=== PATIENT | female | born 1965 | race Caucasian/White ===

== ENCOUNTER 2018-05-28 19:34 | Inpatient (IN) | payer OTHER ==
[2018-05-28 19:43] VITALS: BMI 31.8
[2018-05-28] MEDS ORDERED: NITROGLYCERIN SUBLINGUAL 1/150 0.4 MG TAB SL ONE ×2 (19:51→21:07)
[2018-05-28] MEDS ORDERED: FUROSEMIDE 40 MG/4 ML INJECTABLE VIAL IVPUSH ONE (19:53)
[2018-05-28 19:58] LABS: BASO % 0.7 % (0-2.0); EOS % 1.5 % (0-4.5); HEMATOCRIT 40.5 % (32.4-45.2); HEMOGLOBIN 13.1 GM/dL (10.7-15.3); LYMPH % 12.1 % (8-40); MCH 29.4 pg (25.7-33.7); MCHC 32.3 g/dl (32.0-36.0); MEAN PLT VOLUME 8.7 fl (7.5-11.1); MONO % 7.4 % (3.8-10.2); NEUT % 78.3 % (42.8-82.8); PLATELET COUNT 358 K/MM3 (134-434); RBC 4.45 M/mm3 (3.60-5.2); RDW 14.8 % (11.6-15.6); WHITE BLOOD COUNT 15.2 K/mm3 (4.0-10.0)
[2018-05-28] MEDS ORDERED: NITROPRUSSIDE SODIUM 50,000 MCG in SODIUM CHLORIDE 248 ML IVPB SCH (20:00)
--- NOTE | 2018-05-28 20:04 | PDOC ---
Attending Attestation - Resident Resident Name: Floyd Billydayron - ED Attending Attestation I have performed the following: I have examined & evaluated the patient, The case was reviewed & discussed with the resident, I agree w/resident's findings & plan, Exceptions are as noted - HPI HPI: 05/28/18 20:05 The patient is a 52 year old female, with a significant past medical history of HTN and DM, who presents to the emergency department with, shortness of breath. As per patient, she has been sick and experiencing shortness of breath for the "past few days." Today she notes, experiencing worsening dyspnea upon exertion, orthopnea, and chest tightness without pain. Her symptoms worsened 30 minutes prior to her arrival prompting her to call EMS. She denies recent fevers, chills, headache or dizziness. She denies recent nausea, vomit, diarrhea or constipation. She denies recent dysuria, frequency, urgency or hematuria. Allergies: Penicillins. Past surgical history: None reported. Social history: Smoker. - Medical Decision Making 05/28/18 20:[address] Lokesh Pacheco, medical doctor tongue stitcher, case was discussed. 10:52pm Call placed to Dr. Pacheco, resident Dr. Buffy Billy discussed case with Dr. Pacheco. <Sugey Haque - Last Filed: 05/28/18 22:53> - ED Attending Attestation I have performed the following: I have examined & evaluated the patient, The case was reviewed & discussed with the resident, I agree w/resident's findings & plan, Exceptions are as noted - Physicial Exam PE: 05/29/18 07:42 On initial encounter patient was in obvious distress, tachypneic. Exam was significant for diffuse wheezing, poor air entry, increased wob breathing +edema bilateral LE - Critical Care Time Total Critical Care Time: 20 - Medical Decision Making 05/29/18 07:44 Pt presented, hypertense, tachycardic, tachypneic with sob and LE edema, was initially treated for presumed APE, consider acs, pe, pna labs significant for positive troponin txed as nstemi, admit to tele <Vito Ashley - Last Filed: 05/29/18 07:46> Attestations - Attestations 05/28/18 20:05 Documentation prepared by Sugey Haque, acting as medical transcriber for Vito Ashley MD. <Sugey Haque - Last Filed: 05/28/18 22:53>
[2018-05-28] MEDS ORDERED: FUROSEMIDE 40 MG/4 ML INJECTABLE VIAL ONE (20:11)
[2018-05-28 20:33] LABS: ALBUMIN 3.8 g/dl (3.4-5.0); ALK PHOS 116 U/L (45-117); ANION GAP 8 MMOL/L (8-16); BILIRUBIN,TOTAL 0.3 mg/dL (0.2-1); BLOOD UREA NITROGEN 12 mg/dL (7-18); CHLORIDE 104 mmol/L (98-107); CO2 25 mmol/L (21-32); CREATININE 0.8 mg/dL (0.55-1.3); MAGNESIUM 2.1 mg/dL (1.8-2.4); N-TERMINAL BNP 1526.5 pg/ml (5-125); PHOSPHOROUS 3.2 mg/dL (2.5-4.9); POTASSIUM 4.8 mmol/L (3.5-5.1); SGOT/AST 21 U/L (15-37); SGPT/ALT 43 U/L (13-61); SODIUM 137 mmol/L (136-145); TOT PROT 7.3 g/dl (6.4-8.2)
[2018-05-28 20:42] LABS: GLUCOSE,RANDOM 470 mg/dL (74-106)
[2018-05-28] MEDS ORDERED: ASPIRIN 81 MG CHEWABLE TABLETS PO ONE ×2 (21:07)
[2018-05-28 21:09] LABS: INR 0.88 (0.83-1.09); PROTHROMBIN TIME (PATIENT) 10.4 SEC (9.7-13.0)
[2018-05-28] MEDS ORDERED: ASPIRIN COATED 81 MG TABLET.EC ONE (21:13)
[2018-05-28] MEDS ORDERED: ASPIRIN 81 MG CHEWABLE TABLETS ONE (21:14)
[2018-05-28] MEDS ORDERED: NITROGLYCERIN 25MG/D5W 250ML 25 MG/250 ML ML IVPB SCH (21:15)
[2018-05-28] MEDS ORDERED: HEPARIN NA (PORCINE) 5,000 UNITS/ML 1ML VIAL IVPUSH ONE ×2 (21:15→21:46)
--- NOTE | 2018-05-28 21:40 | PDOC ---
History of Present Illness - General Chief Complaint: Shortness of Breath Stated Complaint: SOB Time Seen by Provider: 05/28/18 19:39 - History of Present Illness Initial Comments: 52 year old female with PMH of HTN, HLD, and IDDM presenting with chest pressure and shortness of breath for the past 30 minutes. Patient states that she has never experienced this before. Denies any prodromal symptoms. She was walking in for chest tightness then suddenly had this shortness of breath. Describes the chest pressure as central and non-radiating preventing her from fully inspiring. Also states that she has experienced slightly worse leg swelling over the last few weeks. 05/28/18 21:36 Past History - Past Medical History Allergies/Adverse Reactions: Allergies Allergy/AdvReac Type Severity Reaction Status Date / Time Penicillins Allergy Hives Verified 05/28/18 20:32 Home Medications: Ambulatory Orders Gabapentin 800 mg PO BID 05/28/18 Glipizide 5 mg PO BID 05/28/18 Insulin Glargine,Hum.rec.anlog [Lantus] 20 unit SQ HS 05/28/18 Insulin Lispro [Humalog] 100 unit SQ ASDIR PRN 05/28/18 Omeprazole 40 mg PO DAILY 05/28/18 Ropinirole HCl [Requip] 1 mg PO BID 05/28/18 Rosuvastatin Calcium [Crestor] 20 mg PO DAILY 05/28/18 Saxagliptin HCl/Metformin HCl [Kombiglyze Xr 2.5-1,000 mg Tab] 1 tab PO BID COPD: No CHF: No DVT: No Diabetes: Yes HTN: Yes - Immunization History Immunization Up to Date: No - Suicide/Smoking/Psychosocial Hx Smoking History: Former smoker Have you smoked in the past 12 months: No Information on smoking cessation initiated: No Hx Alcohol Use: No Drug/Substance Use Hx: No Substance Use Type: None Review of Systems - Review of Systems Constitutional: No: Chills, Diaphoresis, Fever HEENTM: No: Eye Pain, Blurred Vision, Tearing Respiratory: No: Cough, Orthopnea, Shortness of Breath Cardiac (ROS): Yes: Chest Pain, Palpitations. No: Edema ABD/GI: No: Diarrhea, Nausea, Poor Appetite, Vomiting : No: Dysuria, Discharge Musculoskeletal: No: Muscle Pain, Muscle Weakness Integumentary: Yes: Sweating, Other. No: Bruising, Erythema, Flushing, Lesions , Lumps Neurological: No: Numbness, Paresthesia, Tremors Psychiatric: No: Anxiety, Depression Hematologic/Lymphatic: No: Anemia, Blood Clots, Easy Bleeding *Physical Exam - Vital Signs Last Vital Signs Temp Pulse Resp BP Pulse Ox 96.6 F L 132 H 35 H 120/57 L 93 L 05/28/18 19:35 05/28/18 20:25 05/28/18 20:25 05/28/18 20:25 05/28/18 20:40 - Physical Exam General Appearance: Yes: Nourished, Appropriately Dressed, Apparent Distress, Moderate Distress HEENT: positive: EOMI, KRISTY, Normal ENT Inspection, Normal Voice Neck: positive: Trachea midline, Normal Thyroid, Supple. negative: Tender, Rigid Respiratory/Chest: positive: Respiratory Distress, Accessory Muscle Use, Labored Respiration, Rapid RR. negative: Chest Tender, Lungs Clear, Normal Breath Sounds (coarse bilateral breath soundes) Cardiovascular: positive: Regular Rhythm, Tachycardia. negative: Regular Rate Gastrointestinal/Abdominal: positive: Normal Bowel Sounds, Flat, Soft. negative : Tender Lymphatic: negative: Adenopathy, Tenderness Musculoskeletal: positive: Normal Inspection. negative: Decreased Range of Motion Extremity: positive: Normal Capillary Refill, Normal Inspection, Normal Range of Motion. negative: Tender, Pedal Edema Integumentary: positive: Normal Color, Dry, Warm Neurologic: positive: Fully Oriented, Alert, Normal Mood/Affect, Normal Response , Motor Strength 5/5 ED Treatment Course - LABORATORY CBC & Chemistry Diagram: 05/28/18 19:38 05/28/18 19:38 - ADDITIONAL ORDERS Additional order review: Laboratory Results 05/28/18 05/28/18 19:38 19:38 PT with INR 10.40 INR 0.88 Sodium 137 Potassium 4.8 Chloride 104 Carbon Dioxide 25 Anion Gap 8 BUN 12 Creatinine 0.8 Creat Clearance w eGFR > 60 Random Glucose 470 H* Calcium 9.0 Phosphorus 3.2 Magnesium 2.1 Total Bilirubin 0.3 AST 21 ALT 43 Alkaline Phosphatase 116 Creatine Kinase 252 H Creatine Kinase Index 0.9 CK-MB (CK-2) 2.5 Troponin I 0.33 H B-Natriuretic Peptide 1526.5 H Total Protein 7.3 Albumin 3.8 05/28/18 19:38 RBC 4.45 MCV 91.0 MCHC 32.3 RDW 14.8 MPV 8.7 Neutrophils % 78.3 Lymphocytes % 12.1 Monocytes % 7.4 Eosinophils % 1.5 Basophils % 0.7 - Medications Given in the ED: ED Medications Discontinued Medications Generic Name Dose Route Start Last Admin Trade Name Maggie PRN Reason Stop Dose Admin Furosemide 40 mg 05/28/18 19:53 05/28/18 20:20 Lasix Injection - IVPUSH 05/28/18 19:54 40 mg ONCE ONE Administration Nitroglycerin 0.4 mg 05/28/18 19:51 05/28/18 20:09 Nitrostat - SL 05/28/18 19:52 Not Given ONCE ONE Medical Decision Making - Medical Decision Making 52 year old presenting in extreme respiratory distress with chest pressure. Given duonebs with good relief of some symptoms. CXR showing bilateral hilar congestion and pleural effusions concerning for new CHF. Troponin elevated to 0.33 with EKG demonstrating rate 135, CA 124, QRS 104, QTc 471, and normal axis , with LaFB. Repeat EKG showing improved rate 121 without any other changes. Patient was given duonebs x 3, and Lasix 40 IV. Nitroglycerin was considered but held because of pressures resolving on their own. Patient was started on heparin drip and Dr. Jack was kind enough to accept our consult. He recommended that we treat this as a new CHF and give beta blockers to decrease heart rate to decrease myocardial oxygen demand. We were originally concerned that her respiratory symptoms could be attributed to COPD exacerbation type picture because of her smoking history but her CXr and overall clinical picture provides CHF as a more unifying diagnosing. Signed out patient to resident Hdz to hospitalist service in stable condition pending 50 metop tartrate administration. 05/28/18 23:18 *DC/Admit/Observation/Transfer Diagnosis at time of Disposition: NSTEMI (non-ST elevated myocardial infarction), Chest pressure - Discharge Dispostion Condition at time of disposition: Guarded Decision to Admit order: Yes - Referrals Referrals: Kerri Franco [Primary Care Provider] - - Patient Instructions - Post Discharge Activity
[2018-05-28] MEDS ORDERED: HEPARIN NA (PORCINE) 5,000 UNITS/ML 1ML VIAL IVPUSH PRN ×2 (21:46)
[2018-05-28 21:56] LABS: ACETONE SERUM POSITIVE SMALL 1+ (NEGATIVE)
[2018-05-28] MEDS ORDERED: HEPARIN INFUSION - 25,000 UNITS/500 ML INFUS.BAG IVPB ONE (22:35)
[2018-05-28] MEDS ORDERED: HEPARIN NA (PORCINE) 5,000 UNITS/ML 1ML VIAL ONE (22:35)
[2018-05-28] MEDS: HEPARIN INFUSION - 25,000 UNITS/500 ML INFUS.BAG IVPB SCH (22:36)
--- NOTE | 2018-05-28 22:44 | PN ---
Teaching Attending Note Name of Resident: Negrita Hamm ATTENDING PHYSICIAN STATEMENT I saw and evaluated the patient. I reviewed the resident's note and discussed the case with the resident. I agree with the resident's findings and plan as documented. SUBJECTIVE: Patient is a 52 year old woman with a PMH of HLD, penicillin allergy, diabetic retinopathy with prior laser therapy, HTN and NIDDM, who presents to the ER with , shortness of breath. As per patient, she has been sick and experiencing shortness of breath for the "past few days." Today she notes, experiencing worsening dyspnea upon exertion, orthopnea, and chest tightness without pain. Her symptoms worsened 30 minutes prior to her arrival prompting her to call EMS. She denies recent fevers, chills, headache or dizziness. She denies recent nausea, vomit, diarrhea or constipation. She denies recent dysuria, frequency, urgency or hematuria. OBJECTIVE: Alert Vital Signs Period Temp Pulse Resp BP Sys/Corona Pulse Ox Last 24 Hr 96.6 F 130-154 16-38 120-155/52-114 84-100 HEENT: No Jaundice, eye redness or discharge, PERRLA, EOMI. Normocephalic, atraumatic. External ears are normal and hearing is grossly intact. No nasal discharge. Neck: Supple, nontender. No palpable adenopathy or thyromegaly. No JVD Chest: Good effort. Diminished breath sounds in right base and wheezing in left base with prolonged expiration. Heart: Regular. No S3, rub or murmur Abdomen: Not distended, soft, nontender and no HSM. No rebound or guarding. Normoactive bowel sounds. Ext: Peripheral pulses intact. No leg edema. Skin: Warm and dry. No petechiae, rash or ecchymosis. Neuro: Alert. Oriented x3. CN 2-12 grossly intact. Sensation grossly intact in all four extremities and DTR are symmetric. Current Medications Generic Name Dose Route Start Last Admin Trade Name Freq PRN Reason Stop Dose Admin Heparin Sodium (Porcine) 5,000 unit 05/28/18 21:46 Heparin - IVPUSH PRN PRN Heparin Sodium (Porcine) 1,000 unit 05/28/18 21:46 Heparin - IVPUSH PRN PRN Heparin Heparin Sodium/Dextrose 25,000 units in 500 mls @ 20 mls/hr 05/28/18 21:15 Heparin Infusion - IVPB TITR ELOY Protocol 1,000 UNITS/HR Nitroglycerin/Dextrose 25 mg in 250 mls @ 24 mls/hr 05/28/18 21:15 05/28/18 22:12 Nitroglycerin 25mg/D5w 250ml IVPB Not Given TITR ELOY Protocol 40 MCG/MIN Home Medications Medication Instructions Recorded Gabapentin 800 mg PO BID 05/28/18 Glipizide 5 mg PO BID 05/28/18 Insulin Glargine,Hum.rec.anlog 20 unit SQ HS 05/28/18 [Lantus] Insulin Lispro [Humalog] 100 unit SQ ASDIR PRN 05/28/18 Omeprazole 40 mg PO DAILY 05/28/18 Ropinirole HCl [Requip] 1 mg PO BID 05/28/18 Rosuvastatin Calcium [Crestor] 20 mg PO DAILY 05/28/18 Saxagliptin HCl/Metformin HCl 1 tab PO BID 05/28/18 [Kombiglyze Xr 2.5-1,000 mg Tab] Abnormal Lab Results 05/28/18 05/28/18 19:38 19:38 WBC 15.2 H Absolute Neuts (auto) 11.9 H Random Glucose 470 H* Creatine Kinase 252 H Troponin I 0.33 H B-Natriuretic Peptide 1526.5 H Acetone, Qual Positive small 1+ H ASSESSMENT AND PLAN: 1. NSTEMI - Patient being treated with IV heparin drip, statin, metoprolol, plavix and aspirin. Admit to telemetry, get ECHO and consult cardiology. CXR show congestion, possible RLL infiltrate, cardiomegaly, and blunted left CP angle. In view of tachycardia, tachypnea, leukocytosis and CXR findings, will get CTPA to rule out PE and/or pneumonia. Get UA and urine legionella antigen. Got 40 mg of lasix and made about 100 ml of urine. Treat with Duoneb PRN. 2. DM - For now, we will hold the home diabetes drugs and implement sliding scale insulin regimen. Provide comprehensive diabetes care with patient teaching and counseling about the importance of euglycemia, eye care and foot care. 3. Obesity - Will provide patient all the necessary assistance, counseling and positive reinforcement to facilitate weight loss. Consult financial aid advisor. 4. DVT prophylaxis - On IV Heparin drip 5. Advance directives - Full code
[2018-05-28] MEDS ORDERED: METOPROLOL TARTRATE 50 MG TABLET (FP) PO ONE (23:03)
[2018-05-28] MEDS ORDERED: METOPROLOL TARTRATE 50 MG TABLET (FP) ONE (23:35)
[2018-05-29] MEDS ORDERED: INSULIN (LEVEMIR) 100 UNITS/ML UNITS SQ ONE (03:05)
[2018-05-29] MEDS: INSULIN (LEVEMIR) 100 UNITS/ML UNITS SQ SCH ×2 (03:17→21:14)
[2018-05-29] MEDS: GABAPENTIN 400 MG CAPSULE (FP) PO SCH ×3 (03:18→21:16)
[2018-05-29] MEDS: rOPINIRole HCL 1 MG TABLET (FP) PO SCH ×3 (03:18→21:45)
[2018-05-29] MEDS ORDERED: CEFTRIAXONE 1,000 MG in DEXTROSE 5%-WATER - 50 ML IVPB ONE (03:19)
--- NOTE | 2018-05-29 03:32 | HP ---
CHIEF COMPLAINT: shortness of breath and chest pressure PCP: Dr. Franco ([facility]) HISTORY OF PRESENT ILLNESS: 52F w/ pmhx of HLD, DM, GERD, restless leg syndrome presented to the ED with complaints of shortness of breath and chest pressure. She states her original symptom was a cough that started Monday morning when she woke up. On Monday night, she was unable to sleep due to worsening sob and subsequently had to use 2 pillows at night. She states that she never had symptoms like this before. On Monday, the coughing and shortness of breath became worse which prompted her to go to the ED. She reports that she was unable to inspire/ fully, and was breathing in tripod position prior to coming to the hospital. She also admits to her sob becoming more exertional as it became difficult to walk from one room to another in her home. Prior to her hospital arrival, she complained of non-radiating chest tightness that had since subsided during the time of exam. Of note, she was recently admitted at another hospital about 2 weeks ago for severe GERD symptoms. She had a full cardiac workup at that hospital including EKG, stress test, echo all of which shes states were normal. She also states she has a GI follow up appointment for endoscopy/colonoscopy. ER course was notable for: (1) HR 116, WBC 15.2, CK 252, Trop 0.33, EKG showed sinus tach with L atrial enlargement, CXR showed probable mild congestion (2) Treated for NSTEMI due to elevated trops: Aspirin 325 mg, Nitro 0.45 SL, Lasix 40 IVP, Heparin drip, Metoprolol 50 given (3) Cardio made aware Recent Travel: Denies PAST MEDICAL HISTORY: HLD DM GERD Restless legs syndrome PAST SURGICAL HISTORY: L knee replacement, 2 years ago Tendon release, B/l hands Social History: Smoking: Currently smoker 6 cigs/day Alcohol: Socially, 1 glass of wine every 2 months Drugs: CBD oil for legs Family History: Maternal aunt: Colon cx Mother: DM, Aortic stenosis Maternal grandmother: Aortic stenosis Allergies Penicillins Allergy (Verified 05/28/18 20:32) Hives HOME MEDICATIONS: Home Medications Medication Instructions Recorded Gabapentin 800 mg PO BID 05/28/18 Glipizide 5 mg PO BID 05/28/18 Insulin Glargine,Hum.rec.anlog 20 unit SQ HS 05/28/18 [Lantus] Insulin Lispro [Humalog] 100 unit SQ ASDIR PRN 05/28/18 Omeprazole 40 mg PO DAILY 05/28/18 Ropinirole HCl [Requip] 1 mg PO BID 05/28/18 Rosuvastatin Calcium [Crestor] 20 mg PO DAILY 05/28/18 Saxagliptin HCl/Metformin HCl 1 tab PO BID 05/28/18 [Kombiglyze Xr 2.5-1,000 mg Tab] REVIEW OF SYSTEMS CONSTITUTIONAL: loss of appetite Absent: fever, chills, diaphoresis, generalized weakness, malaise HEENT: Absent: rhinorrhea, nasal congestion, mouth swelling, ear pain, eye pain, visual changes CARDIOVASCULAR: chest tightness, peripheral edema Absent: chest pain, syncope, palpitations, irregular heart rate, lightheadedness RESPIRATORY: cough, shortness of breath, dyspnea with exertion, orthopnea Absent: wheezing, stridor, hemoptysis GASTROINTESTINAL: Absent: abdominal pain, abdominal distension, nausea, vomiting, diarrhea, constipation GENITOURINARY: Absent: dysuria, frequency, urgency, hesitancy, hematuria MUSCULOSKELETAL: neck pain Absent: myalgia, arthralgia, joint swelling, back pain, SKIN: multiple mosquito bites on b/l shins ENDOCRINE: weight gain Absent: unexplained weight loss, heat intolerance, cold intolerance NEUROLOGIC: Absent: headache, focal weakness or paresthesias, dizziness, unsteady gait, seizure, mental status changes, bladder or bowel incontinence PHYSICAL EXAMINATION Vital Signs - 24 hr 05/28/18 05/28/18 05/28/18 19:35 19:38 19:48 Temperature 96.6 F L Pulse Rate 154 H 132 H Pulse Rate [ Apical] Respiratory 38 H Rate Blood Pressure 151/114 H Blood Pressure [Left Arm] O2 Sat by Pulse 84 L 99 99 Oximetry (%) 05/28/18 05/28/18 05/28/18 20:00 20:25 20:40 Temperature Pulse Rate Pulse Rate [ 130 H 132 H Apical] Respiratory 16 35 H Rate Blood Pressure Blood Pressure 155/52 L 120/57 L [Left Arm] O2 Sat by Pulse 100 98 93 L Oximetry (%) 05/28/18 05/28/18 05/28/18 21:57 22:57 22:58 Temperature 98.0 F Pulse Rate 116 H Pulse Rate [ 132 H 116 H Apical] Respiratory 24 H 20 Rate Blood Pressure Blood Pressure 120/57 L 120/52 L [Left Arm] O2 Sat by Pulse 94 L 95 95 Oximetry (%) GENERAL: AAOx3. NAD. Resting comfortably. HEENT: AT/NC. EOMI. VERNON. Moist mucus membranes. NECK: Supple, no LAD/JVD. LUNGS: L sided wheezing. L basilar crackles. Decreased breath sounds on R side. Symmetric chest rise. No accessory muscle use. HEART: RRR. Normal S1, S2. No murmurs noted. ABDOMEN: Obese. Soft, ND/NT +BS in all 4 Q's. No masses or bruits noted. MUSCULOSKELETAL: B/l lower extremity swelling. No pedal edema. 5/5 muscle strength in b/l u/l extremities. 2+ pedal pulses. NEUROLOGICAL: Normal speech. CN II-XII intact. Facial symmetry noted. PSYCHIATRIC: Cooperative. Good eye contact. Appropriate mood and affect. SKIN: Multiple scabs on b/l lower leg anteriorly. Warm, dry, normal turgor, normal capillary refill. Laboratory Results - last 24 hr 05/28/18 05/28/18 05/28/18 19:38 19:38 19:38 WBC 15.2 H RBC 4.45 Hgb 13.1 Hct 40.5 MCV 91.0 MCH 29.4 MCHC 32.3 RDW 14.8 Plt Count 358 MPV 8.7 Absolute Neuts (auto) 11.9 H Neutrophils % 78.3 Lymphocytes % 12.1 Monocytes % 7.4 Eosinophils % 1.5 Basophils % 0.7 Nucleated RBC % 0 PT with INR 10.40 INR 0.88 PTT (Actin FS) Sodium 137 Potassium 4.8 Chloride 104 Carbon Dioxide 25 Anion Gap 8 BUN 12 Creatinine 0.8 Creat Clearance w eGFR > 60 Random Glucose 470 H* Calcium 9.0 Phosphorus 3.2 Magnesium 2.1 Total Bilirubin 0.3 AST 21 ALT 43 Alkaline Phosphatase 116 Creatine Kinase 252 H Creatine Kinase Index 0.9 CK-MB (CK-2) 2.5 Troponin I 0.33 H B-Natriuretic Peptide 1526.5 H Total Protein 7.3 Albumin 3.8 Acetone, Qual Positive small 1+ H 05/28/18 05/28/18 21:18 23:45 WBC RBC Hgb Hct MCV MCH MCHC RDW Plt Count MPV Absolute Neuts (auto) Neutrophils % Lymphocytes % Monocytes % Eosinophils % Basophils % Nucleated RBC % PT with INR INR PTT (Actin FS) 29.4 Sodium Potassium Chloride Carbon Dioxide Anion Gap BUN Creatinine Creat Clearance w eGFR Random Glucose Calcium Phosphorus Magnesium Total Bilirubin AST ALT Alkaline Phosphatase Creatine Kinase Creatine Kinase Index CK-MB (CK-2) Troponin I 0.38 H B-Natriuretic Peptide Total Protein Albumin Acetone, Qual ASSESSMENT/PLAN: 52F w/ pmhx of HLD, DM, GERD, restless leg syndrome presented to the ED with complaints of shortness of breath and chest pressure. #Shortness of breath 2/2 NSTEMI vs. Pneumonia vs. PE; EKG showed sinus tach w/ L atrial enlargement, No ST-T changes or pathologic Q waves noted, however trops elevated (0.33 --> 0.38) prompted concern for NSTEMI. Upon initial presentation, pt was tachypneic, tachycardic, had leukocytosis (WBC 15.2) of unknown etiology. There is a questionable concern for pneumonia vs. PE. CT Chest ordered for further evaluation. -Aspirin 325 mg PO given; cont w/ Aspirin 81 mg PO QD -Metoprolol Tartrate 50 mg PO given; cont w/ Metoprolol Tartrate 25 mg PO BID -Heparin drip started -Atorvastatin 80 mg PO QD -Lasix 40 mg IVP given; 100 mL output of urine according to patient after receiving Lasix. -Echo ordered -Repeat trops/EKG in AM -Cardio consult -CT chest w/ contrast ordered, pending final read -Empiric antibiotic tx for pneumonia started: Levaquin 750 mg IVPB QD -Urine Legionella Ag ordered -U/A pending -ID consult #DM -hold home meds -Levemir 20U SQ HS -ISS -BGMs ACHS #HLD Resume home med: -Crestor 20 mg PO HS #GERD Resume home med: -Pantoprazole 40 mg PO QD #Restless leg syndrome Resume home med: -Gabapentin 800 mg PO BID -Requip 1 mg PO BID #DVT Ppx -Currently on IV heparin drip #FEN -no IVF needed -recheck lytes in AM -Diabetic diet dispo -admit to tele obs -medications reconciled Visit type - Emergency Visit Emergency Visit: Yes ED Registration Date: 05/29/18 Care time: The patient presented to the Emergency Department on the above date and was hospitalized for further evaluation of their emergent condition. - New Patient This patient is new to me today: Yes Date on this admission: 05/29/18 - Critical Care Critical Care patient: No
[2018-05-29] MEDS ORDERED: AZITHROMYCIN IVPB 500 MG in DEXTROSE 5%-WATER - 250 ML IVPB ONE (04:00)
[2018-05-29] MEDS ORDERED: HEPARIN NA (PORCINE) 5,000 UNITS/ML 1ML VIAL ONE (06:27)
[2018-05-29 07:18] LABS: BASO % 0.9 % (0-2.0); EOS % 1.7 % (0-4.5); HEMOGLOBIN 11.3 GM/dL (10.7-15.3); LYMPH % 13.6 % (8-40); MCH 29.6 pg (25.7-33.7); MCHC 33.2 g/dl (32.0-36.0); MEAN CELL VOLUME 89.1 fl (80-96); MEAN PLT VOLUME 8.5 fl (7.5-11.1); MONO % 8.1 % (3.8-10.2); NEUT % 75.7 % (42.8-82.8); PLATELET COUNT 277 K/MM3 (134-434); RBC 3.82 M/mm3 (3.60-5.2); RDW 14.2 % (11.6-15.6); WHITE BLOOD COUNT 9.2 K/mm3 (4.0-10.0)
[2018-05-29 07:42] LABS: ALBUMIN 3.2 g/dl (3.4-5.0); ALK PHOS 95 U/L (45-117); ANION GAP 7 MMOL/L (8-16); BILIRUBIN,TOTAL 0.3 mg/dL (0.2-1); BLOOD UREA NITROGEN 11 mg/dL (7-18); CALCIUM 8.6 mg/dL (8.5-10.1); CHLORIDE 103 mmol/L (98-107); CO2 27 mmol/L (21-32); CREATININE 0.5 mg/dL (0.55-1.3); GLUCOSE,RANDOM 270 mg/dL (74-106); POTASSIUM 4.2 mmol/L (3.5-5.1); SGOT/AST 18 U/L (15-37); SGPT/ALT 39 U/L (13-61); SODIUM 137 mmol/L (136-145)
[2018-05-29] MEDS ORDERED: INSULIN (NOVOLOG) ASPART 100 UNITS/ML 10ML VIAL ONE (09:11)
[2018-05-29] MEDS ORDERED: ALBUTEROL SO4 2.5/IPRATROPIUM 0.5 INH SOL 3 ML VIAL.NEB. NEB ONE (09:13)
[2018-05-29] MEDS: INSULIN SLIDING SCALE (NOVOLOG) 1 VIAL SQ SCH ×4 (09:15→21:17)
--- NOTE | 2018-05-29 11:24 | ECHO ---
Name: KATLINREBECCANATE Wade Exam:Adult Echocardiogram Study Date: 05/29/2018 08:33 AM Age: 52 yrs Reason For Study: NSTEMI Height: 63 in Weight: 180 lb BSA: 1.8 m2 MMode/2D Measurements & Calculations IVSd: 0.93 cm LA dimension: 4.2 cm LVIDd: 4.7 cm LVIDs: 3.6 cm LVPWd: 0.93 cm EDV(Teich): 102.4 ml ESV(Teich): 54.4 ml Doppler Measurements & Calculations MV E max michael: 59.7 cm/sec MR max michael: 220.6 cm/sec MV A max michael: 86.4 cm/sec MR max P.8 mmHg MV E/A: 0.69 Med Peak E' Michael: 6.5 cm/sec Med E/e': 9.1 Lat Peak E' Michael: 4.2 cm/sec Lat E/e': 14.2 Procedure A two-dimensional transthoracic echocardiogram with color flow and Doppler was performed. The study w as technically difficult with many images being suboptimal in quality. The patient was in normal sinus r hythm during the exam. Left Ventricle The left ventricle is normal in size. Left ventricular systolic function is mild to moderately reduce d. The calculated LVEF is approximately 45%. E/A reversal consistent with but not diagnostic of poor LV comp liance. Right Ventricle The right ventricle is mildly dilated. The right ventricular systolic function is mildly reduced. In some views the right ventricular apex appears hyperkinetic compared to the remainder of the right ventricl e. This appears consistent with Elise's sign. Would recommend evaluation for pulmonary embolism as clinic ally indicated. Atria The left atrium is mildly dilated. Mitral Valve There is mild mitral annular calcification. There is mild mitral valve thickening. There is mild mitr al regurgitation. Tricuspid Valve The tricuspid valve is not well visualized. The tricuspid valve is not well visualized, but is grossl y normal. No tricuspid regurgitation. Aortic Valve The aortic valve is not well visualized. There is mild aortic sclerosis.;. The aortic valve opens wel l. No aortic regurgitation is present. Pulmonic Valve The pulmonic valve is not well visualized. The pulmonic valve is not well seen, but is grossly normal . Trace pulmonic valvular regurgitation. Great Vessels The aortic root is normal size. Pericardium/Pleura Trivial pericardial effusion not hemodynamically significant. Interpretation Summary The study was technically difficult with many images being suboptimal in quality. Left ventricular systolic function is mild to moderately reduced. E/A reversal consistent with but not diagnostic of poor LV compliance The right ventricle is mildly dilated. The right ventricular systolic function is mildly reduced. In some views the right ventricular apex appears hyperkinetic compared to the remainder of the right ventricle. This appears consistent with Elise's sign. Would recommend evaluation for pulmonary em bolism as clinically indicated. The left atrium is mildly dilated. There is mild mitral regurgitation. No tricuspid regurgitation. There is mild aortic sclerosis.; Trivial pericardial effusion not hemodynamically significant MD Jayy Sanchez 05/29/2018 11:23 AM
[2018-05-29] MEDS: PANTOPRAZOLE 40 MG TABLET (FP) PO SCH (11:26)
--- NOTE | 2018-05-29 12:53 | EKG ---
Test Reason : Blood Pressure : / mmHG Vent. Rate : 121 BPM Atrial Rate : 121 BPM P-R Int : 130 ms QRS Dur : 106 ms QT Int : 328 ms P-R-T Axes : 057 -41 084 degrees QTc Int : 465 ms SINUS TACHYCARDIA POSSIBLE LEFT ATRIAL ENLARGEMENT LEFT AXIS DEVIATION CANNOT RULE OUT ANTERIOR INFARCT , AGE UNDETERMINED ABNORMAL ECG WHEN COMPARED WITH ECG OF 28-MAY-2018 20:04, NO SIGNIFICANT CHANGE WAS FOUND Confirmed by MD TANGELA, ZOE ([id number]) on 05/29/2018 12:53:01 PM Referred By: Confirmed By:ZOE HONEYCUTT MD
--- NOTE | 2018-05-29 12:54 | EKG ---
Test Reason : Blood Pressure : / mmHG Vent. Rate : 135 BPM Atrial Rate : 135 BPM P-R Int : 124 ms QRS Dur : 104 ms QT Int : 314 ms P-R-T Axes : 064 -58 081 degrees QTc Int : 471 ms SINUS TACHYCARDIA POSSIBLE LEFT ATRIAL ENLARGEMENT LEFT ANTERIOR FASCICULAR BLOCK NONSPECIFIC ST ABNORMALITY ABNORMAL ECG NO PREVIOUS ECGS AVAILABLE Confirmed by MD TANGELA, ZOE ([id number]) on 05/29/2018 12:53:41 PM Referred By: Confirmed By:ZOE HONEYCUTT MD
--- NOTE | 2018-05-29 12:55 | CON.CARD ---
Consult Consult Specialty:: Cardiology Referred by:: Hospitalist Reason for Consultation:: Cardiac evaluation - History of Present Illness Chief Complaint: Shortness of breath History of Present Illness: Patient is a 52 year old female with underlying history of hypercholesterolemia , DM, GERD and restless leg syndrome who presents with complaints of shortness of breath and chest pressure. She also complains of mild productive cough with clear sputum. She denies fever or chills. Her symptoms started Monday morning. Troponin is currently elevated to 0.68. She was given ASA and was started on IV Heparin. She still complains of shortness of breath on exertion and also had complained of non radiating chest tightness now subsided. 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 Her PMD is at [facility]. She has GERD and is currently scheduled for EGD and routine colonoscopy as outpatient. - History Source History Provided By: Patient, Medical Record Limitations to Obtaining History: No Limitations - Past Medical History Cardio/Vascular: Yes: Hyperlipdemia Gastrointestinal: Yes: GERD ...LMP Comment: menopause ...: No Endocrine: Yes: Diabetes Mellitus - Alcohol/Substance Use Hx Alcohol Use: No - Smoking History Smoking history: Current every day smoker Have you smoked in the past 12 months: Yes Home Medications - Allergies Allergies/Adverse Reactions: Allergies Allergy/AdvReac Type Severity Reaction Status Date / Time Penicillins Allergy Hives Verified 05/28/18 20:32 bee venom protein (honey bee) AdvReac Verified 05/29/18 10:49 - Home Medications Home Medications: Ambulatory Orders Gabapentin 800 mg PO BID 05/28/18 Glipizide 5 mg PO BID 05/28/18 Insulin Glargine,Hum.rec.anlog [Lantus] 20 unit SQ HS 05/28/18 Insulin Lispro [Humalog] 100 unit SQ ASDIR PRN 05/28/18 Omeprazole 40 mg PO DAILY 05/28/18 Ropinirole HCl [Requip] 1 mg PO BID 05/28/18 Rosuvastatin Calcium [Crestor] 20 mg PO DAILY 05/28/18 Saxagliptin HCl/Metformin HCl [Kombiglyze Xr 2.5-1,000 mg Tab] 1 tab PO BID Review of Systems - Review of Systems Constitutional: denies: Chills, Fever Cardiovascular: reports: Chest Pain, Shortness of Breath. denies: Palpitations Respiratory: reports: Cough, SOB, SOB on Exertion. denies: Hemoptysis, Orthopnea, PND Gastrointestinal: denies: Abdominal Pain, Constipation, Diarrhea, Melena, Nausea , Rectal Bleeding, Vomiting Genitourinary: denies: Dysuria, Hematuria Musculoskeletal: denies: Back Pain, Joint Pain Neurological: denies: Dizziness, Headache, Seizure, Syncope Vital Signs: Vital Signs Temperature 98.6 F 05/29/18 10:34 Pulse Rate 96 H 05/29/18 10:34 Respiratory Rate 20 05/29/18 10:34 Blood Pressure 112/62 05/29/18 10:34 O2 Sat by Pulse Oximetry (%) 96 05/29/18 10:49 Eyes: Yes: PERRL HENT: Yes: Atraumatic Neck: Yes: Supple Respiratory: Yes: CTA Bilaterally Gastrointestinal: Yes: Normal Bowel Sounds, Soft. No: Tenderness Cardiovascular: Yes: Regular Rate and Rhythm JVD: No Carotid Bruit: No PMI: Non-Displaced Heart Sounds: Yes: S1, S2. No: Gallop Murmur: No: Systolic Murmur, Diastolic Murmur Edema: No - Other Data Labs, Other Data: CBC, BMP 05/29/18 06:45 05/29/18 06:45 INR, PTT INR 0.88 (0.83-1.09) 05/28/18 19:38 Troponin, BNP 05/28/18 05/28/18 05/29/18 19:38 23:45 06:45 Troponin I 0.33 H 0.38 H 0.69 H* B-Natriuretic Peptide 1526.5 H Sinus tachycardia, anterior infarct Echo: Report Reviewed (RV mildly diminshed with hyperkinetic RV apex ?Elise' s sing) Imaging - Results Chest X-ray: Report Reviewed Cat Scan: Report Reviewed (CT chest does not reveal pulmonary embolism) EKG: Report Reviewed Problem List - Problems (1) KING (dyspnea on exertion) Code(s): R06.09 - OTHER FORMS OF DYSPNEA (2) Hypocholesterolemia Code(s): E78.6 - LIPOPROTEIN DEFICIENCY (3) GERD (gastroesophageal reflux disease) Code(s): K21.9 - GASTRO-ESOPHAGEAL REFLUX DISEASE WITHOUT ESOPHAGITIS (4) Chest pressure Code(s): R07.89 - OTHER CHEST PAIN (5) NSTEMI (non-ST elevated myocardial infarction) Code(s): I21.4 - NON-ST ELEVATION (NSTEMI) MYOCARDIAL INFARCTION Assessment/Plan 1. NSTEMI with elevation of troponin 2. Hypercholesterolemia 3. DM 4. Shortness of breath rule out PTE 5. GERD PLAN: 1. Trend troponin 2. Echocardiography to assess LV/RV and valvular function 3. CT chest noted. Further evaluation may be needed if PTE high on the list 4. Heparin protocol 5. Statin - Crestor 6. Metoprolol as tolerated 7. Consider dual antiplatelt therapy 8. If there are no contraindications, would arrange for cardiac catheterization/ coronary angiography and possible stenting. 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 9. GI work up needs to be postponed Further plans are to follow Isaiah Fields MD
--- NOTE | 2018-05-29 14:31 | PN ---
Physical Exam: SUBJECTIVE: Patient seen and examined this AM. She states that she has had a cough for a few days. She states that her shortness of breath is improved from last night. OBJECTIVE: Vital Signs Period Temp Pulse Resp BP Sys/Corona Pulse Ox Last 24 Hr 96.6 F-98.6 F 89-154 16-38 111-155/52-114 84-100 GENERAL: A&O, no acute distress HEAD: Normocephalic, atraumatic. EYES: PERRL, no scleral icterus EARS, NOSE, THROAT: oropharynx clear without exudates. Moist mucous membranes. NECK: supple without lymphadenopathy LUNGS: Diffuse expiratory wheezes HEART: Regular rate and rhythm, normal S1 and S2 without murmur ABDOMEN: Soft, nontender to palpation, normoactive bowel sounds MUSCULOSKELETAL: No bony deformities or tenderness. EXTREMITIES: 2+ pulses, warm, well-perfused. No peripheral edema. NEUROLOGICAL: Cranial nerves II-XII grossly intact. Normal speech. PSYCHIATRIC: Cooperative. Good eye contact. Appropriate mood and affect. SKIN: Warm, dry, no rashes or lesions noted Laboratory Results - last 24 hr 05/28/18 05/28/18 05/28/18 19:38 19:38 19:38 WBC 15.2 H RBC 4.45 Hgb 13.1 Hct 40.5 MCV 91.0 MCH 29.4 MCHC 32.3 RDW 14.8 Plt Count 358 MPV 8.7 Absolute Neuts (auto) 11.9 H Neutrophils % 78.3 Lymphocytes % 12.1 Monocytes % 7.4 Eosinophils % 1.5 Basophils % 0.7 Nucleated RBC % 0 PT with INR 10.40 INR 0.88 PTT (Actin FS) Sodium 137 Potassium 4.8 Chloride 104 Carbon Dioxide 25 Anion Gap 8 BUN 12 Creatinine 0.8 Creat Clearance w eGFR > 60 POC Glucometer Random Glucose 470 H* Calcium 9.0 Phosphorus 3.2 Magnesium 2.1 Total Bilirubin 0.3 AST 21 ALT 43 Alkaline Phosphatase 116 Creatine Kinase 252 H Creatine Kinase Index 0.9 CK-MB (CK-2) 2.5 Troponin I 0.33 H B-Natriuretic Peptide 1526.5 H Total Protein 7.3 Albumin 3.8 Acetone, Qual Positive small 1+ H 05/28/18 05/28/18 05/29/18 21:18 23:45 04:40 WBC RBC Hgb Hct MCV MCH MCHC RDW Plt Count MPV Absolute Neuts (auto) Neutrophils % Lymphocytes % Monocytes % Eosinophils % Basophils % Nucleated RBC % PT with INR INR PTT (Actin FS) 29.4 36.7 H Sodium Potassium Chloride Carbon Dioxide Anion Gap BUN Creatinine Creat Clearance w eGFR POC Glucometer Random Glucose Calcium Phosphorus Magnesium Total Bilirubin AST ALT Alkaline Phosphatase Creatine Kinase Creatine Kinase Index CK-MB (CK-2) Troponin I 0.38 H B-Natriuretic Peptide Total Protein Albumin Acetone, Qual 05/29/18 05/29/18 05/29/18 06:45 06:45 09:06 WBC 9.2 RBC 3.82 Hgb 11.3 Hct 34.0 D MCV 89.1 MCH 29.6 MCHC 33.2 RDW 14.2 Plt Count 277 D MPV 8.5 Absolute Neuts (auto) 7.0 Neutrophils % 75.7 Lymphocytes % 13.6 Monocytes % 8.1 Eosinophils % 1.7 Basophils % 0.9 Nucleated RBC % 0 PT with INR INR PTT (Actin FS) Sodium 137 Potassium 4.2 Chloride 103 Carbon Dioxide 27 Anion Gap 7 L BUN 11 Creatinine 0.5 L Creat Clearance w eGFR > 60 POC Glucometer [phone] Random Glucose 270 H Calcium 8.6 Phosphorus Magnesium Total Bilirubin 0.3 AST 18 ALT 39 Alkaline Phosphatase 95 Creatine Kinase Creatine Kinase Index CK-MB (CK-2) Troponin I 0.69 H* B-Natriuretic Peptide Total Protein 6.0 L Albumin 3.2 L Acetone, Qual 05/29/18 05/29/18 05/29/18 12:16 12:55 12:55 WBC RBC Hgb Hct MCV MCH MCHC RDW Plt Count MPV Absolute Neuts (auto) Neutrophils % Lymphocytes % Monocytes % Eosinophils % Basophils % Nucleated RBC % PT with INR INR PTT (Actin FS) 59.5 H Sodium Potassium Chloride Carbon Dioxide Anion Gap BUN Creatinine Creat Clearance w eGFR POC Glucometer 168 Random Glucose Calcium Phosphorus Magnesium Total Bilirubin AST ALT Alkaline Phosphatase Creatine Kinase 270 H Creatine Kinase Index 1.1 CK-MB (CK-2) 3.2 Troponin I 0.61 H* B-Natriuretic Peptide Total Protein Albumin Acetone, Qual Active Medications Generic Name Dose Route Start Last Admin Trade Name Freq PRN Reason Stop Dose Admin Gabapentin 800 mg 05/29/18 01:45 05/29/18 11:20 Neurontin - PO Not Given BID ELOY Heparin Sodium (Porcine) 5,000 unit 05/28/18 21:46 05/29/18 06:30 Heparin - IVPUSH 5,000 unit PRN PRN Administration Heparin Sodium (Porcine) 1,000 unit 05/28/18 21:46 Heparin - IVPUSH PRN PRN Heparin Heparin Sodium/Dextrose 25,000 units in 500 mls @ 20 mls/hr 05/28/18 21:15 06:31 Heparin Infusion - IVPB 1,150 units/hr TITR ELOY 23 mls/hr Titration Protocol 1,000 UNITS/HR Influenza Virus Vaccine Quadrival 60 mcg 05/30/18 10:00 Flulaval Quad [id number] IM 05/30/18 10:01 .ONCE ONE Insulin Aspart 1 vial 05/29/18 07:00 05/29/18 12:44 Novolog Vial Sliding Scale - SQ 2 units ACHS ELOY Administration Protocol Insulin Detemir 20 units 05/29/18 01:45 05/29/18 03:17 Levemir Vial SQ 20 units HS [facility] Administration Metoprolol Tartrate 25 mg 05/29/18 13:15 Lopressor - PO BID ELOY Pantoprazole Sodium 40 mg 05/29/18 10:00 05/29/18 11:26 Protonix - PO 40 mg DAILY ELOY Administration Pneumococcal Polyvalent Vaccine 0.5 ml 05/30/18 11:15 Pneumovax - IM 05/30/18 11:16 .ONCE ONE Ropinirole HCl 1 mg 05/29/18 01:45 05/29/18 11:21 Requip - PO Not Given BID ELOY Rosuvastatin Calcium 20 mg 05/29/18 22:00 Crestor - PO [facility] ASSESSMENT/PLAN: 52 female with PMH of HLD, DM, GERD, restless leg syndrome, admitted with chest pressure and SOB with NSTEMI vs PE NSTEMI -ECG noted with Sinus tachycardia and nonspecific ST changes -Troponins 0.38 -> 0.69 -> 0.61 Peaked and downtrending, could be secondary to demand as below -Cardiology consult appreciated -Continue heparin drip -Likely for transfer to tertiary care center tomorrow for Cath Acute Hypoxic Respiratory Distress, improved -SOB, cough, chest pressure -Sinus tachycardia -CTA negative for PE -ECHO noted with right heart strain (Elise's sign concerning for possible PE ) -PE causing right heart strain would likely be present on CTA with high sensitivity -Heparin Drip as above -Pulmonology consulted HLD -Crestor 20 mg PO HS IDDM -Hold oral hypoglycemics -Levemir 20 units SQ HS -BGM ACHS -Insulin sliding scale for glycemic control GERD -Protonix 40 mg PO Daily -For EGD/Colonoscopy as outpatient in a few weeks -Hold off on GI workup for now RLS -Requip 1mg PO BID DVT Prophylaxis -Heparin Drip FEN -Fluids: none -Electrolytes: No electrolyte abnormalities, BMP in AM -Nutrition: Diabetic Diet, NPO at 9AM tomorrow for possible cath Disposition Telemetry, likely transfer for cath tomorrow Visit type - Emergency Visit Emergency Visit: Yes ED Registration Date: 05/29/18 Care time: The patient presented to the Emergency Department on the above date and was hospitalized for further evaluation of their emergent condition. - New Patient This patient is new to me today: Yes Date on this admission: 05/29/18 - Critical Care Critical Care patient: No
[2018-05-29] MEDS: METOPROLOL TARTRATE 25 MG TABLET (FP) PO SCH ×2 (14:40→21:15)
--- NOTE | 2018-05-29 17:03 | EKG ---
Test Reason : Blood Pressure : / mmHG Vent. Rate : 094 BPM Atrial Rate : 094 BPM P-R Int : 146 ms QRS Dur : 104 ms QT Int : 382 ms P-R-T Axes : 054 -40 089 degrees QTc Int : 477 ms NORMAL SINUS RHYTHM POSSIBLE LEFT ATRIAL ENLARGEMENT LEFT AXIS DEVIATION ABNORMAL ECG WHEN COMPARED WITH ECG OF 28-MAY-2018 22:03, NO SIGNIFICANT CHANGE WAS FOUND Confirmed by MD TANGELA, ZOE ([id number]) on 05/29/2018 5:03:23 PM Referred By: Amy MANDUJANO Confirmed By:ZOE HONEYCUTT MD
--- NOTE | 2018-05-29 18:02 | PN ---
Teaching Attending Note Name of Resident: Zeyad Miller ATTENDING PHYSICIAN STATEMENT I saw and evaluated the patient. I reviewed the resident's note and discussed the case with the resident. I agree with the resident's findings and plan as documented. SUBJECTIVE:breathing much improved. some pleuritic CP on deep inspiration. states she did have some L sided neck pain radiating to her chest yesterday but contributed it to her breathing. states she felt the most relief after lasix given. non productive cough. denies CP, SOB, fever, N/V/C/D is pretty active. no recent travel (last trip was to [facility] [place] quit smoking cigarettes 4 days ago No family hx of clots. OBJECTIVE: Last Vital Signs Temp Pulse Resp BP Pulse Ox 98.4 F 98 H 20 116/66 96 05/29/18 14:00 05/29/18 14:00 05/29/18 10:34 05/29/18 14:00 05/29/18 10:49 General NAD CV S1 S2 RRR no murmur/rub/gallop Lungs decreased breath sounds R base, mild scattered wheezing Abdomen soft NT/ND obese Extremities 1+ pitting edema ASSESSMENT AND PLAN: 52yo F with PMH DM, dyslipidemia, HTN presented to the ER with dyspnea for the past 2 days that started suddenly and then progressed and was unable to do anything with mild exertion 1. Acute hypoxic respiratory distress- currently 96% on RA. noted to be 84% on RA on arrival. received lasix 40mg IVP in [facility] and SL NTG. high concern for PE with R heart strain. CTPE was negative for any clot.vasc doppler of the legs ordered. will f/u. will consult pulm for further recommendations. nothing else that can explain heart strain at this time. pt is hemodynamically stable and no need for emergent thrombectomy/TPA. on hep ggt at present time. possibility that as echo images were poor quality may need to be repeated to see if still appreciated. supplemental oxygen as needed for SpO2 >90%. will d/c abx at this time as no signs of infection 2. NSTEMI- more likely demand ischemia from above. Troponin peaked at 0.69. on hep ggt. seen by cardio and plan for cardiac cath and further ischemia eval 3. Continuous nicotine dependence- with recent cessation 4 days ago. refused nicotine patch. counselled on continue to abstain due to risk assoc with continued smoking 4. L upper breast nodule- 1.5cm seen. will need mammogram as outpatient 5. DM- hold oral agents. iss and BGM 6. HTN- controlled. cont home medication 7. DVT ppx- hep ggt
[2018-05-29] MEDS: ROSUVASTATIN CA 20 MG TABLET (FP) PO SCH (21:14)
[2018-05-29] MEDS: HEPARIN INFUSION - 25,000 UNITS/500 ML INFUS.BAG IVPB SCH (21:48)
[2018-05-30] MEDS: INSULIN SLIDING SCALE (NOVOLOG) 1 VIAL SQ SCH ×4 (06:17→21:36)
[2018-05-30] MEDS ORDERED: ALBUTEROL SO4 2.5/IPRATROPIUM 0.5 INH SOL 3 ML VIAL.NEB. NEB ONE ×2 (06:41→06:45)
[2018-05-30 07:49] LABS: ALK PHOS 85 U/L (45-117); ANION GAP 7 MMOL/L (8-16); BILIRUBIN,TOTAL 0.2 mg/dL (0.2-1); BLOOD UREA NITROGEN 14 mg/dL (7-18); CALCIUM 8.8 mg/dL (8.5-10.1); CHLORIDE 106 mmol/L (98-107); CO2 28 mmol/L (21-32); CREATININE 0.5 mg/dL (0.55-1.3); GLUCOSE,RANDOM 115 mg/dL (74-106); MAGNESIUM 2.2 mg/dL (1.8-2.4); PHOSPHOROUS 4.3 mg/dL (2.5-4.9); POTASSIUM 4.6 mmol/L (3.5-5.1); SGOT/AST 19 U/L (15-37); SGPT/ALT 37 U/L (13-61); SODIUM 141 mmol/L (136-145)
[2018-05-30] MEDS: GABAPENTIN 400 MG CAPSULE (FP) PO SCH ×2 (09:19→21:18)
[2018-05-30] MEDS: METOPROLOL TARTRATE 25 MG TABLET (FP) PO SCH (09:19)
[2018-05-30] MEDS: PANTOPRAZOLE 40 MG TABLET (FP) PO SCH (09:19)
[2018-05-30] MEDS: rOPINIRole HCL 1 MG TABLET (FP) PO SCH ×2 (09:20→21:36)
[2018-05-30] MEDS ORDERED: FLU VACCINE QUAD 60 MCG/0.5 ML (MDV 18-19) IM ONE (10:00)
[2018-05-30] MEDS ORDERED: PNEUMOC 13-VAL CONJ-DIP CRM/PF 0.5 ML DISP.SYRIN IM ONE (10:00)
[2018-05-30] MEDS ORDERED: PNEUMOCOCCAL 23 VACCINE 0.5 ML VIAL IM ONE (10:00)
--- NOTE | 2018-05-30 10:00 | PN ---
Progress Note, Physician History of Present Illness: Reports KING, orthopnea and positional chest tighness and cough worse supine, LV dysfunction noted. Had received symptomatic improvement with diuresis in ER. - Current Medication List Current Medications: Active Medications Gabapentin (Neurontin -) 800 mg PO BID [facility] Last Admin: 05/30/18 09:19 Dose: 800 mg Heparin Sodium (Porcine) (Heparin -) 5,000 unit IVPUSH PRN PRN Last Admin: 05/29/18 06:30 Dose: 5,000 unit Heparin Sodium (Porcine) (Heparin -) 1,000 unit IVPUSH PRN PRN PRN Reason: Heparin Heparin Sodium/Dextrose (Heparin Infusion -) 25,000 units in 500 mls @ 20 mls/ hr IVPB TITR [facility]; Protocol Last Admin: 05/29/18 21:48 Dose: 1,150 units/hr, 23 mls/hr Influenza Virus Vaccine Quadrival (Flulaval Quad [id number]) 60 mcg IM .ONCE ONE Stop: 05/30/18 10:01 Insulin Aspart (Novolog Vial Sliding Scale -) 1 vial SQ [facility]; Protocol Last Admin: 05/30/18 06:17 Dose: Not Given Insulin Detemir (Levemir Vial) 20 units SQ [facility] Last Admin: 05/29/18 21:14 Dose: 20 units Metoprolol Tartrate (Lopressor -) 25 mg PO BID [facility] Last Admin: 05/30/18 09:19 Dose: 25 mg Pantoprazole Sodium (Protonix -) 40 mg PO DAILY [facility] Last Admin: 05/30/18 09:19 Dose: 40 mg Pneumococcal Polyvalent Vaccine (Pneumovax -) 0.5 ml IM .ONCE ONE Stop: 05/30/18 10:01 Ropinirole HCl (Requip -) 1 mg PO BID [facility] Last Admin: 05/30/18 09:20 Dose: 1 mg Rosuvastatin Calcium (Crestor -) 20 mg PO [facility] Last Admin: 05/29/18 21:14 Dose: 20 mg - Objective Vital Signs: Vital Signs Temperature 98.3 F 05/30/18 06:00 Pulse Rate 82 05/30/18 06:00 Respiratory Rate 20 05/30/18 06:00 Blood Pressure 96/61 05/30/18 06:00 O2 Sat by Pulse Oximetry (%) 98 05/29/18 21:00 Constitutional: Yes: No Distress, Calm Neck: Yes: Supple Cardiovascular: Yes: Regular Rate and Rhythm Respiratory: Yes: Regular, Diminished Gastrointestinal: Yes: Normal Bowel Sounds, Soft Edema: No Labs: CBC, BMP 05/29/18 06:45 05/30/18 05:30 INR, PTT INR 0.88 (0.83-1.09) 05/28/18 19:38 - ....Imaging EKG: Report Reviewed (Tele: SR) Problem List - Problems (1) Hyperlipidemia associated with type 2 diabetes mellitus Code(s): E11.69 - TYPE 2 DIABETES MELLITUS WITH OTHER SPECIFIED COMPLICATION; E78.5 - HYPERLIPIDEMIA, UNSPECIFIED (2) Insulin dependent diabetes mellitus Code(s): E11.9 - TYPE 2 DIABETES MELLITUS WITHOUT COMPLICATIONS; Z79.4 - MICROBIOLOGY TECHNICIAN (CURRENT) USE OF INSULIN (3) Acute combined systolic and diastolic ACC/AHA stage C congestive heart failure Code(s): I50.41 - ACUTE COMBINED SYSTOLIC AND DIASTOLIC (CONGESTIVE) HRT FAIL (4) KING (dyspnea on exertion) Code(s): R06.09 - OTHER FORMS OF DYSPNEA Assessment/Plan Assessment/Plan 05/29/2018 Echo: Mild-moderate decreased LVEF 45%, RV apical hyperkinesis c/w Elise sign, mild LAE, mild MR 05/29/[address]: No PE, trace bilateral effusions R>L 05/29/18 Vasc us: No DVT bilaterally 1. Acute diastolic/systolic heart failure with subendocardial ischemia 2. Hypercholesterolemia 3. IDDM 5. GERD PLAN: 1. Troponins downtrending, check TSH, lipid panel, Ha1c 2. IV diuresis with monitor diuretic response, renal fxn and electrolytes 3. Change to carvedilol 3.125 bid, Crestor 20 qhs, add CELESTE-I/ARB as hemodynamics tolerate, d/c heparin gtt 4. R&LHc once euvolemic
[2018-05-30] MEDS: FUROSEMIDE 40 MG/4 ML INJECTABLE VIAL IVPUSH SCH ×2 (10:37→15:37)
[2018-05-30] MEDS: CARVEDILOL 3.125 MG TABLET (FP) PO SCH ×2 (10:37→21:18)
--- NOTE | 2018-05-30 12:11 | PN ---
Progress Note (short form) - Note Progress Note: PULMONARY CONSULATATION DICTATED 05/30/18 IMP DYSPNEA/CP ACUTE SYSTOLIC/DIASTOLIC HF RV DYSFUNCTION DOUBT PE NORMAL CHEST CTA,LOWER EXT DUPLEX + TROPONINS DM GERD ? [facility]AS PLAN LASIX SUPPLEMENTAL O2 INHALED BRONCHODILATORS SLEEP SCREEN DAILY WT TREND TROPONINS FURTHER CARDIAC W/U PER CARDIOLOGY PFTS OUTPATIENT DR SWEET Problem List - Problems (1) Hypoxemia Code(s): R09.02 - HYPOXEMIA (2) Acute combined systolic and diastolic ACC/AHA stage C congestive heart failure Code(s): I50.41 - ACUTE COMBINED SYSTOLIC AND DIASTOLIC (CONGESTIVE) HRT FAIL (3) KING (dyspnea on exertion) Code(s): R06.09 - OTHER FORMS OF DYSPNEA (4) Hyperlipidemia associated with type 2 diabetes mellitus Code(s): E11.69 - TYPE 2 DIABETES MELLITUS WITH OTHER SPECIFIED COMPLICATION; E78.5 - HYPERLIPIDEMIA, UNSPECIFIED (5) NSTEMI (non-ST elevated myocardial infarction) Code(s): I21.4 - NON-ST ELEVATION (NSTEMI) MYOCARDIAL INFARCTION (6) GERD (gastroesophageal reflux disease) Code(s): K21.9 - GASTRO-ESOPHAGEAL REFLUX DISEASE WITHOUT ESOPHAGITIS (7) Hypocholesterolemia Code(s): E78.6 - LIPOPROTEIN DEFICIENCY (8) Chest pressure Code(s): R07.89 - OTHER CHEST PAIN
--- NOTE | 2018-05-30 13:01 | CONS ---
DATE OF CONSULTATION: 05/30/2018 REFERRING PHYSICIAN: Suzan Arreguin MD This is a 52-year-old white female with a past medical history of hypercholesterolemia, GERD, diabetes, restless leg syndrome, a cigar smoker, admitted to [facility] with complaint of shortness of breath, hypoxemia, and chest tightness. Patient states she was doing well until Monday prior to admission when she started developing a cough productive of clear sputum. She also complained of increasing shortness of breath. She also felt like she had a rattle in her chest. She took a nebulizer which offered some improvement. Over the course of the evening she had increasing cough and was unable to lay flat. In the morning on Monday, she woke up again short of breath, cough, increasing orthopnea, and ambulate a few feet without getting short of breath. She drove herself to [facility] ER. In the ER she was noted to be hypoxemic. She was initially administered inhaled bronchodilator which offered some improvement. She also was treated with Lasix with which she felt much improved. She was transferred to the telemetry unit for the monitoring. On admission, she is also noted to have elevated troponins up to 0.68. She underwent an echocardiogram which revealed evidence of left ventricular systolic dysfunction, mild to moderately reduced E-A reversal consistent with poor LV compliance. Right ventricle was also noted to be mildly dilated and right ventricular systolic function mildly reduced. No evidence of pulmonary hypertension was appreciated. Patient underwent a CTA of the chest which revealed no evidence of pulmonary embolism. There was elevated right hemidiaphragm with some atelectatic changes at the right base. Duplex of lower extremity, no evidence of DVT. Patient had followup earlier today with cardiology and placed on standing dose of Lasix. At the current time she said she feels better, is still complaining of orthopnea but less dyspnea on exertion. She denies any history of COPD or asthma in the past. 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 There is no family history of DVT or pulmonary emboli. Of note is the patient does state that for the past few months she has noted increasing bilateral lower extremity edema when she gets off from work. She also has had some mild increase in dyspnea on exertion over the past month or so. Patient is unsure whether or not she snores. Denies any excessive daytime sleepiness. PAST MEDICAL HISTORY: Again includes hyperlipidemia, diabetes, restless leg syndrome, GERD. REVIEW OF SYSTEMS: Positive orthopnea, positive dyspnea, positive cough, positive occasional bronchospasm, positive chest tightness. No fever, no chills, no hemoptysis, no nausea, no vomiting, no diaphoresis. CURRENT MEDICATIONS: Include Neurontin, Coreg, Requip, Crestor, NovoLog, Levemir, Lasix, and Protonix. PHYSICAL EXAMINATION: General: The patient is a well-developed, well-nourished female, awake, alert, in no acute respiratory distress. Vital Signs: O2 saturation is 97% on 2 L, 92% to 93% on room air. She is afebrile. Heart rate is 95. Blood pressure is 122/65. Respiratory rate is 18. HEENT: Normocephalic, atraumatic. Neck: Supple. Heart: Regular S1, S2. Chest: She has a few bibasilar crackles with occasional expiratory wheeze. Abdomen: Soft. Bowel sounds are positive. Extremities: No cyanosis or edema. LABORATORY: Troponin 0.61. WBC is 9.2, hemoglobin 11.3, hematocrit 34, platelet count 277,000. Chemistries: BUN 14, creatinine 0.5. BNP is 1526. Chest CT as noted earlier. No evidence of pulmonary emboli, elevated right hemidiaphragm, and mild atelectatic changes in the right lung base. Echo as noted earlier. IMPRESSION: 1. Dyspnea, chest pain, etiology undetermined. Likely acute systolic, diastolic heart failure. 2. Right ventricle dysfunction, doubt pulmonary emboli, with no chest CTA and duplex lower extremities. Cannot exclude underlying cardiomyopathy. 3. Positive troponins, likely secondary to ischemia. 4. Diabetes. 5. Gastroesophageal reflux disease. 6. Rule out likely obstructive sleep apnea. PLAN: Lasix, supplemental O2, inhaled bronchodilators, daily weights, sleep screen, trend troponins. PFT as outpatient. Further cardiac workup as per Cardiology. PAUL SWEET M.D. [id number]
--- NOTE | 2018-05-30 13:21 | PN ---
Teaching Attending Note Name of Resident: Zeyad Miller ATTENDING PHYSICIAN STATEMENT I saw and evaluated the patient. I reviewed the resident's note and discussed the case with the resident. I agree with the resident's findings and plan as documented. SUBJECTIVE:breathing has improved but remains dyspnic on exertion. continues to have cough but less productive. denies Cp, fever, chills, N/V/C/D OBJECTIVE: Last Vital Signs Temp Pulse Resp BP Pulse Ox 98.2 F 95 H 18 122/65 97 05/30/18 10:00 05/30/18 10:00 05/30/18 10:00 05/30/18 10:00 05/30/18 09:00 Intake & Output 05/27/18 05/28/18 05/29/18 05/30/18 23:59 23:59 23:59 23:59 Intake Total 1248 516 Balance 1248 516 Weight 180 lb 180 lb General NAD CV S1 S2 RRR no murmur/rub/gallop Lungs decreased breath sounds R base, mild scattered wheezing Extremities 1+ pitting edema ASSESSMENT AND PLAN: 52yo F with PMH DM, dyslipidemia, HTN presented to the ER with dyspnea for the past 2 days that started suddenly and then progressed and was unable to do anything with mild exertion 1. Acute hypoxic respiratory distress- saturating well on RA. spoke with cardio and pulm. appears pt have more heart failure causing symptoms. with doppler being negative for DVT and CTPE negative less likely embolus at this time and pt improved with diuresis. started on lasix 40mg IV BID. will monitor electrolytes and weights. cardiac cath will be placed on hold at this time but will need R&L cath once euvolemic. started on coreg. will add acei as hemodynamics permit 2. NSTEMI- more likely demand ischemia from above. Troponin peaked at 0.69. d/c hep ggt. ischemic eval once euvolemic 3. Continuous nicotine dependence- with recent cessation 4 days ago. refused nicotine patch. counselled on continue to abstain due to risk assoc with continued smoking 4. L upper breast nodule- 1.5cm seen. had mammogram in the past. will need repeat mammogram as outpatient 5. DM- hold oral agents. iss and BGM 6. HTN- controlled. cont home medication 7. DVT ppx- hep sq
[2018-05-30] MEDS: ALBUTEROL SO4 2.5/IPRATROPIUM 0.5 INH SOL 3 ML VIAL.NEB. NEB PRN ×2 (13:35→20:23)
--- NOTE | 2018-05-30 14:02 | PN ---
Physical Exam: SUBJECTIVE: Patient seen and examined this AM. She states that she is feeling better than yesterday, though she still becomes short of breath when laying flat. OBJECTIVE: Vital Signs Period Temp Pulse Resp BP Sys/Corona Pulse Ox Last 24 Hr 98.1 F-98.9 F 81-98 18-20 96-122/61-71 97-98 GENERAL: A&O, no acute distress HEAD: Normocephalic, atraumatic. EYES: PERRL, no scleral icterus EARS, NOSE, THROAT: oropharynx clear without exudates. Moist mucous membranes. NECK: supple without lymphadenopathy LUNGS: Wheezes improved from yesterday HEART: Regular rate and rhythm, normal S1 and S2 without murmur ABDOMEN: Soft, nontender to palpation, normoactive bowel sounds EXTREMITIES: 2+ pulses, warm, well-perfused. No peripheral edema. Laboratory Results - last 24 hr 05/29/18 05/29/18 05/29/18 12:55 16:55 21:13 PTT (Actin FS) D-Dimer Sodium Potassium Chloride Carbon Dioxide Anion Gap BUN Creatinine Creat Clearance w eGFR POC Glucometer 220 357 Random Glucose Calcium Phosphorus Magnesium Total Bilirubin AST ALT Alkaline Phosphatase Creatine Kinase Creatine Kinase Index 1.1 CK-MB (CK-2) 3.2 Troponin I Total Protein Albumin 05/30/18 05/30/18 05/30/18 05:21 05:30 05:30 PTT (Actin FS) 53.0 H D-Dimer Sodium 141 Potassium 4.6 Chloride 106 Carbon Dioxide 28 Anion Gap 7 L BUN 14 Creatinine 0.5 L Creat Clearance w eGFR > 60 POC Glucometer 137 Random Glucose 115 H Calcium 8.8 Phosphorus 4.3 Magnesium 2.2 Total Bilirubin 0.2 AST 19 ALT 37 Alkaline Phosphatase 85 Creatine Kinase 236 H Creatine Kinase Index 0.8 CK-MB (CK-2) 2.0 Troponin I 0.39 H Total Protein 6.0 L Albumin 3.0 L 05/30/18 05/30/18 11:10 12:20 PTT (Actin FS) D-Dimer 378 Sodium Potassium Chloride Carbon Dioxide Anion Gap BUN Creatinine Creat Clearance w eGFR POC Glucometer 247 Random Glucose Calcium Phosphorus Magnesium Total Bilirubin AST ALT Alkaline Phosphatase Creatine Kinase Creatine Kinase Index CK-MB (CK-2) Troponin I Total Protein Albumin Active Medications Generic Name Dose Route Start Last Admin Trade Name Freq PRN Reason Stop Dose Admin Albuterol/Ipratropium 1 amp 05/30/18 12:21 Duoneb - NEB Q4H PRN SHORTNESS OF BREATH Carvedilol 3.125 mg 05/30/18 10:30 05/30/18 10:37 Coreg - PO 3.125 mg BID ELOY Administration Enoxaparin Sodium 40 mg 05/31/18 10:00 Lovenox - SQ DAILY ELOY Furosemide 40 mg 05/30/18 10:23 05/30/18 10:37 Lasix Injection - IVPUSH 40 mg BID@0600,1400 ELOY Administration Gabapentin 800 mg 05/29/18 01:45 05/30/18 09:19 Neurontin - PO 800 mg BID ELOY Administration Insulin Aspart 1 vial 05/29/18 07:00 05/30/18 12:42 Novolog Vial Sliding Scale - SQ 4 units ACHS ELOY Administration Protocol Insulin Detemir 20 units 05/29/18 01:45 05/29/18 21:14 Levemir Vial SQ 20 units HS ELOY Administration Pantoprazole Sodium 40 mg 05/29/18 10:00 05/30/18 09:19 Protonix - PO 40 mg DAILY ELOY Administration Ropinirole HCl 1 mg 05/29/18 01:45 05/30/18 09:20 Requip - PO 1 mg BID ELOY Administration Rosuvastatin Calcium 20 mg 05/29/18 22:00 05/29/18 21:14 Crestor - PO 20 mg HS ELOY Administration ASSESSMENT/PLAN: 52 female with PMH of HLD, DM, GERD, restless leg syndrome, admitted with chest pressure and SOB with NSTEMI vs PE NSTEMI -ECG noted with Sinus tachycardia and nonspecific ST changes -Troponins 0.38 -> 0.69 -> 0.61 -> 0.39, Peaked and downtrending -Cardiology consult appreciated -DC heparin drip -Possible transfer to tertiary care center for Cath -Lasix 40 mg IV BID -Coreg 3.125 mg PO BID Acute Hypoxic Respiratory Distress, improved -SOB, cough, chest pressure -Sinus tachycardia -CTA negative for PE, though small nodule on breast noted, pt will need outpatient mammogram -ECHO noted with right heart strain (Elise's sign concerning for possible PE ) -PE causing right heart strain would likely be present on CTA with high sensitivity -Pulmonology consult appreciated -Duonebs PRN -PFTs as an outpatient -CONCHA workup as an outpatient HLD -Crestor 20 mg PO HS IDDM -Hold oral hypoglycemics -Levemir 20 units SQ HS -BGM ACHS -Insulin sliding scale for glycemic control, has reqiured 4 units today so far GERD -Protonix 40 mg PO Daily -For EGD/Colonoscopy as outpatient in a few weeks -Hold off on GI workup for now RLS -Requip 1mg PO BID DVT Prophylaxis -Lovenox 40 mg SQ Daily FEN -Fluids: none -Electrolytes: No electrolyte abnormalities, BMP in AM -Nutrition: Diabetic Sodium controlled Diet Disposition Telemetry Visit type - Emergency Visit Emergency Visit: Yes ED Registration Date: 05/29/18 Care time: The patient presented to the Emergency Department on the above date and was hospitalized for further evaluation of their emergent condition. - New Patient This patient is new to me today: No - Critical Care Critical Care patient: No
[2018-05-30] MEDS ORDERED: INSULIN (NOVOLOG) ASPART 100 UNITS/ML 10ML VIAL ONE (18:49)
[2018-05-30] MEDS: INSULIN (LEVEMIR) 100 UNITS/ML UNITS SQ SCH (21:19)
[2018-05-30] MEDS: ROSUVASTATIN CA 20 MG TABLET (FP) PO SCH (21:19)
[2018-05-31] MEDS: INSULIN SLIDING SCALE (NOVOLOG) 1 VIAL SQ SCH ×2 (06:06→13:03)
[2018-05-31] MEDS: FUROSEMIDE 40 MG/4 ML INJECTABLE VIAL IVPUSH SCH ×2 (06:13→13:02)
[2018-05-31 08:11] LABS: ANION GAP 8 MMOL/L (8-16); BLOOD UREA NITROGEN 17 mg/dL (7-18); CHLORIDE 103 mmol/L (98-107); CHOLESTEROL 133 mg/dL (50-200); CO2 28 mmol/L (21-32); CREATININE 0.6 mg/dL (0.55-1.3); GLUCOSE,RANDOM 123 mg/dL (74-106); HDL CHOLESTEROL 42 mg/dL (40-60); MAGNESIUM 1.9 mg/dL (1.8-2.4); PHOSPHOROUS 4.6 mg/dL (2.5-4.9); POTASSIUM 4.3 mmol/L (3.5-5.1); SODIUM 140 mmol/L (136-145); TRIGLYCERIDES 95 mg/dL (0-150)
[2018-05-31 08:26] VITALS: BP 132/81; PULSE 88; TEMP 95.6
[2018-05-31] MEDS ORDERED: PT OWN MED DRAWER 7, Y5N ONE (09:32)
--- NOTE | 2018-05-31 09:47 | PN ---
Progress Note, Physician History of Present Illness: Reports KING, orthopnea and positional chest tighness and cough resolving with diuresis, Ha1c very elevated. - Current Medication List Current Medications: Active Medications Albuterol/Ipratropium (Duoneb -) 1 amp NEB Q4H PRN PRN Reason: SHORTNESS OF BREATH Last Admin: 05/30/18 20:23 Dose: 1 amp Carvedilol (Coreg -) 3.125 mg PO BID [facility] Last Admin: 05/30/18 21:18 Dose: 3.125 mg Enoxaparin Sodium (Lovenox -) 40 mg SQ DAILY [facility] Furosemide (Lasix Injection -) 40 mg IVPUSH BID@0600,1400 [facility] Last Admin: 05/31/18 06:13 Dose: 40 mg Gabapentin (Neurontin -) 800 mg PO BID [facility] Last Admin: 05/30/18 21:18 Dose: 800 mg Insulin Aspart (Novolog Vial Sliding Scale -) 1 vial SQ [facility]; Protocol Last Admin: 05/31/18 06:06 Dose: Not Given Insulin Detemir (Levemir Vial) 20 units SQ [facility] Last Admin: 05/30/18 21:19 Dose: 20 units Pantoprazole Sodium (Protonix -) 40 mg PO DAILY [facility] Last Admin: 05/30/18 09:19 Dose: 40 mg Ropinirole HCl (Requip -) 1 mg PO BID [facility] Last Admin: 05/30/18 21:36 Dose: 1 mg Rosuvastatin Calcium (Crestor -) 20 mg PO [facility] Last Admin: 05/30/18 21:19 Dose: 20 mg - Objective Vital Signs: Vital Signs Temperature 95.6 F L 05/31/18 08:24 Pulse Rate 88 05/31/18 08:24 Respiratory Rate 17 05/31/18 08:24 Blood Pressure 132/81 05/31/18 08:24 O2 Sat by Pulse Oximetry (%) 95 05/30/18 21:00 Constitutional: Yes: No Distress, Calm Neck: Yes: Supple Cardiovascular: Yes: Regular Rate and Rhythm Respiratory: Yes: Regular, CTA Bilaterally Gastrointestinal: Yes: Normal Bowel Sounds, Soft Edema: No Labs: CBC, BMP 05/29/18 06:45 05/31/18 05:30 INR, PTT INR 0.88 (0.83-1.09) 05/28/18 19:38 - ....Imaging EKG: Report Reviewed (Tele: SR) Problem List - Problems (1) Hyperlipidemia associated with type 2 diabetes mellitus Code(s): E11.69 - TYPE 2 DIABETES MELLITUS WITH OTHER SPECIFIED COMPLICATION; E78.5 - HYPERLIPIDEMIA, UNSPECIFIED (2) Insulin dependent diabetes mellitus Code(s): E11.9 - TYPE 2 DIABETES MELLITUS WITHOUT COMPLICATIONS; Z79.4 - CHAINSTITCH PANTS OUTSEAMER (CURRENT) USE OF INSULIN (3) Acute combined systolic and diastolic ACC/AHA stage C congestive heart failure Code(s): I50.41 - ACUTE COMBINED SYSTOLIC AND DIASTOLIC (CONGESTIVE) HRT FAIL (4) KING (dyspnea on exertion) Code(s): R06.09 - OTHER FORMS OF DYSPNEA (5) Diabetic cardiomyopathy in type 2 diabetes mellitus Code(s): E11.69 - TYPE 2 DIABETES MELLITUS WITH OTHER SPECIFIED COMPLICATION; I43 - CARDIOMYOPATHY IN DISEASES CLASSIFIED ELSEWHERE Assessment/Plan 05/29/2018 Echo: Mild-moderate decreased LVEF 45%, mild-mod decreased RV fxn with RV apical hyperkinesis c/w Elise sign, mild LAE, mild MR 05/29/[address]: No PE, trace bilateral effusions R>L 05/29/18 Vasc us: No DVT bilaterally 1. Acute diastolic/systolic heart failure with subendocardial ischemia resolving - suspect diabetic cardiomyopathy 2. Hypercholesterolemia 3. IDDM poorly controlled due to non compliance 4. GERD PLAN: 1. Troponins downtrending 2. Change to oral diuresis with monitor diuretic response, renal fxn and electrolytes 3. Increase carvedilol 6.25 bid, Crestor 20 qhs, add losartan 25 qd and uptitrate as hemodynamics tolerate 4. R&LHc once euvolemic 5. May d/c home with f/u in office
[2018-05-31] MEDS ORDERED: LOSARTAN POTASSIUM 25 MG TABLET PO SCH (10:00)
[2018-05-31] MEDS ORDERED: ENOXAPARIN NA (PORCINE) 40 MG/0.4 ML DISP.SYRIN SQ SCH (10:00)
[2018-05-31] MEDS ORDERED: CARVEDILOL 6.25 MG TABLET (FP) PO SCH (10:15)
[2018-05-31] MEDS: GABAPENTIN 400 MG CAPSULE (FP) PO SCH (10:23)
[2018-05-31] MEDS: rOPINIRole HCL 1 MG TABLET (FP) PO SCH (10:24)
[2018-05-31] MEDS: PANTOPRAZOLE 40 MG TABLET (FP) PO SCH (10:24)
--- NOTE | 2018-05-31 12:30 | PN ---
Progress Note (short form) - Note Progress Note: Breathing feels better today. Less SOB. Comfortable on RA. No CP. Intake & Output 05/28/18 05/29/18 05/30/18 05/31/18 23:59 23:59 23:59 23:59 Intake Total 1248 916 130 Balance 1248 916 130 Weight 180 lb 180 lb 188 lb 9.6 oz Last Vital Signs Temp Pulse Resp BP Pulse Ox 95.6 F L 88 17 132/81 95 05/31/18 08:24 05/31/18 08:24 05/31/18 08:24 05/31/18 08:24 05/30/18 21:00 Active Medications Albuterol/Ipratropium (Duoneb -) 1 amp NEB Q4H PRN PRN Reason: SHORTNESS OF BREATH Last Admin: 05/30/18 20:23 Dose: 1 amp Carvedilol (Coreg -) 6.25 mg PO BID [facility] Last Admin: 05/31/18 10:24 Dose: 6.25 mg Enoxaparin Sodium (Lovenox -) 40 mg SQ DAILY [facility] Last Admin: 05/31/18 10:27 Dose: Not Given Furosemide (Lasix Injection -) 40 mg IVPUSH BID@0600,1400 [facility] Stop: 05/31/18 23:59 Last Admin: 05/31/18 06:13 Dose: 40 mg Furosemide (Lasix -) 20 mg PO DAILY [facility] Gabapentin (Neurontin -) 800 mg PO BID [facility] Last Admin: 05/31/18 10:23 Dose: 800 mg Insulin Aspart (Novolog Vial Sliding Scale -) 1 vial SQ [facility]; Protocol Last Admin: 05/31/18 06:06 Dose: Not Given Insulin Detemir (Levemir Vial) 20 units SQ [facility] Last Admin: 05/30/18 21:19 Dose: 20 units Losartan Potassium (Cozaar -) 25 mg PO DAILY [facility] Last Admin: 05/31/18 10:24 Dose: 25 mg Pantoprazole Sodium (Protonix -) 40 mg PO DAILY [facility] Last Admin: 05/31/18 10:24 Dose: 40 mg Ropinirole HCl (Requip -) 1 mg PO BID [facility] Last Admin: 05/31/18 10:24 Dose: 1 mg Rosuvastatin Calcium (Crestor -) 20 mg PO [facility] Last Admin: 05/30/18 21:19 Dose: 20 mg Constitutional: Yes: Awake and alert, No Distress Neck: Yes: Supple Cardiovascular: Yes: Regular Rate and Rhythm Respiratory: Yes: Diminished at the bases Gastrointestinal: Yes: Normal Bowel Sounds, Soft Edema: No Labs: Laboratory Results - last 24 hr 05/30/18 05/30/18 05/30/18 12:20 17:22 21:18 D-Dimer 378 Sodium Potassium Chloride Carbon Dioxide Anion Gap BUN Creatinine Creat Clearance w eGFR POC Glucometer 368 242 Random Glucose Hemoglobin A1c % Calcium Phosphorus Magnesium Triglycerides Cholesterol Total LDL Cholesterol HDL Cholesterol TSH 05/31/18 05/31/18 05/31/18 05:30 05:30 06:01 D-Dimer Sodium 140 Potassium 4.3 Chloride 103 Carbon Dioxide 28 Anion Gap 8 BUN 17 Creatinine 0.6 Creat Clearance w eGFR > 60 POC Glucometer 143 Random Glucose 123 H Hemoglobin A1c % 10.1 H Calcium 9.0 Phosphorus 4.6 Magnesium 1.9 Triglycerides 95 Cholesterol 133 Total LDL Cholesterol 76 HDL Cholesterol 42 TSH 4.44 H 05/31/18 11:46 D-Dimer Sodium Potassium Chloride Carbon Dioxide Anion Gap BUN Creatinine Creat Clearance w eGFR POC Glucometer 283 Random Glucose Hemoglobin A1c % Calcium Phosphorus Magnesium Triglycerides Cholesterol Total LDL Cholesterol HDL Cholesterol TSH Problem List - Problems (1) Hypoxemia Code(s): R09.02 - HYPOXEMIA (2) Acute combined systolic and diastolic ACC/AHA stage C congestive heart failure Code(s): I50.41 - ACUTE COMBINED SYSTOLIC AND DIASTOLIC (CONGESTIVE) HRT FAIL (3) KING (dyspnea on exertion) Code(s): R06.09 - OTHER FORMS OF DYSPNEA (4) Hyperlipidemia associated with type 2 diabetes mellitus Code(s): E11.69 - TYPE 2 DIABETES MELLITUS WITH OTHER SPECIFIED COMPLICATION; E78.5 - HYPERLIPIDEMIA, UNSPECIFIED (5) NSTEMI (non-ST elevated myocardial infarction) Code(s): I21.4 - NON-ST ELEVATION (NSTEMI) MYOCARDIAL INFARCTION (6) GERD (gastroesophageal reflux disease) Code(s): K21.9 - GASTRO-ESOPHAGEAL REFLUX DISEASE WITHOUT ESOPHAGITIS (7) Hypocholesterolemia Code(s): E78.6 - LIPOPROTEIN DEFICIENCY (8) Chest pressure Code(s): R07.89 - OTHER CHEST PAIN IMP DYSPNEA/CP ACUTE SYSTOLIC/DIASTOLIC HF RV DYSFUNCTION DOUBT PE NORMAL CHEST CTA,LOWER EXT DUPLEX + TROPONINS DM GERD ? [facility] PLAN LASIX SUPPLEMENTAL O2 INHALED BRONCHODILATORS SLEEP SCREEN DAILY WT PFTS OUTPATIENT DR BERNSTEIN
[2018-05-31] MEDS ORDERED: INSULIN (NOVOLOG) ASPART 100 UNITS/ML 10ML VIAL ONE (12:31)
--- NOTE | 2018-05-31 12:57 | PN ---
Teaching Attending Note Name of Resident: Zeyad Miller ATTENDING PHYSICIAN STATEMENT I saw and evaluated the patient. I reviewed the resident's note and discussed the case with the resident. I agree with the resident's findings and plan as documented. SUBJECTIVE:overall improved but continues to have non productive cough. able to lay more flat than previously. states she lost 2lbs although here shows increase in weight. denies CP, SOB, fever, chills, N/v/C/D OBJECTIVE: Last Vital Signs Temp Pulse Resp BP Pulse Ox 95.6 F L 88 17 132/81 95 05/31/18 08:24 05/31/18 08:24 05/31/18 08:24 05/31/18 08:24 05/30/18 21:00 Intake & Output 05/28/18 05/29/18 05/30/18 05/31/18 23:59 23:59 23:59 23:59 Intake Total 1248 916 130 Balance 1248 916 130 Weight 180 lb 180 lb 188 lb 9.6 oz General NAD Lungs decreased breath sounds R base, mild scattered wheezing Extremities trace pitting edema ASSESSMENT AND PLAN: 52yo F with PMH DM, dyslipidemia, HTN presented to the ER with dyspnea for the past 2 days that started suddenly and then progressed and was unable to do anything with mild exertion 1. Acute hypoxic respiratory distress-due to acute systolic CHF- newly diagnosed. clinically improved. can switch lasix to po at this time. uptitrate heart failure therapy. coreg/ARB/statin. will need L&R heart cath as outpatient and follow up. 2. NSTEMI- more likely demand ischemia from above. Troponin peaked at 0.69. 3. Continuous nicotine dependence- with recent cessation 4 days ago. refused nicotine patch. counselled on continue to abstain due to risk assoc with continued smoking 4. L upper breast nodule- 1.5cm seen. had mammogram in the past. will need repeat mammogram as outpatient 5. DM- hold oral agents. A1c 10. she states last A1c was over 11. resume home medications. discussed about diet modifications as pt states she has not been compliant. iss and BGM 6. Obesity- BMI 33. discussed lifestyle modifications and diet. pt highly motivated to implement healthy lifestyle changes and start exercise 7. HTN- controlled. cont home medication 8. DVT ppx- hep sq 9. d/c home
--- NOTE | 2018-05-31 13:19 | DS ---
Physical Exam: SUBJECTIVE: Patient seen and examined this AM. She says that she is able to lay more flat than yesterday but that it worsens her cough some. Overall she states she is feeling better and is hoping to return home today. OBJECTIVE: Vital Signs Period Temp Pulse Resp BP Sys/Corona Pulse Ox Last 24 Hr 95.6 F-98.8 F 88-106 17-20 98-154/63-87 95 PHYSICAL EXAM GENERAL: A&O, no acute distress HEAD: Normocephalic, atraumatic. EYES: PERRL, no scleral icterus EARS, NOSE, THROAT: oropharynx clear without exudates. Moist mucous membranes. NECK: supple without lymphadenopathy LUNGS: CTA b/l, wheezes resolved HEART: Regular rate and rhythm, normal S1 and S2 without murmur ABDOMEN: Soft, nontender to palpation, normoactive bowel sounds EXTREMITIES: 2+ pulses, warm, well-perfused. No peripheral edema. LABS Laboratory Results - last 24 hr 05/30/18 05/30/18 05/31/18 17:22 21:18 05:30 Sodium 140 Potassium 4.3 Chloride 103 Carbon Dioxide 28 Anion Gap 8 BUN 17 Creatinine 0.6 Creat Clearance w eGFR > 60 POC Glucometer 368 242 Random Glucose 123 H Hemoglobin A1c % Calcium 9.0 Phosphorus 4.6 Magnesium 1.9 Triglycerides 95 Cholesterol 133 Total LDL Cholesterol 76 HDL Cholesterol 42 TSH 4.44 H 05/31/18 05/31/18 05/31/18 05:30 06:01 11:46 Sodium Potassium Chloride Carbon Dioxide Anion Gap BUN Creatinine Creat Clearance w eGFR POC Glucometer 143 283 Random Glucose Hemoglobin A1c % 10.1 H Calcium Phosphorus Magnesium Triglycerides Cholesterol Total LDL Cholesterol HDL Cholesterol TSH IMAGING: CXR: Diffuse increased interstitial markings consistent with pulmonary vascular congestion Chest CT: No gross evidence of PE, Elevated right hemidiaphram, atelectasis at right base, trace b/l pleural effusions R>L ECHO: LV function mild/moderately reduced, Right ventricle apex hyperkinetic consistent with McConnells sign for PE, Trivial pericardial effusion Vascular Duplex US LE: Negative for signs of DVT b/l HOSPITAL COURSE: Date of Admission:05/29/18 Date of Discharge: 05/31/18 HPI on Admission 52F w/ pmhx of HLD, DM, GERD, restless leg syndrome presented to the ED with complaints of shortness of breath and chest pressure. She states her original symptom was a cough that started Monday morning when she woke up. On Monday night, she was unable to sleep due to worsening sob and subsequently had to use 2 pillows at night. She states that she never had symptoms like this before. On Monday, the coughing and shortness of breath became worse which prompted her to go to the ED. She reports that she was unable to inspire/ fully, and was breathing in tripod position prior to coming to the hospital. She also admits to her sob becoming more exertional as it became difficult to walk from one room to another in her home. Prior to her hospital arrival, she complained of non-radiating chest tightness that had since subsided during the time of exam. Of note, she was recently admitted at another hospital about 2 weeks ago for severe GERD symptoms. She had a full cardiac workup at that hospital including EKG, stress test, echo all of which shes states were normal. She also states she has a GI follow up appointment for endoscopy/colonoscopy. Hospital Course Pt was found to have a likely NSTEMI with elevating troponins and was placed on a heparin drip. CTA was performed which was negative for PE as above. She was seen by cardiology who recommended an Echo which revealed reduced LV function and possible Elise's sign as mentioned above. She was started on Coreg, Lasix, and Losartan. She had great improvement of her symptoms with the Lasix. She was deemed medically safe for discharge. She was told to stop taking her home Metoprolol and to begin taking Coreg 6.25 mg PO BID, Losartan 25 mg PO Daily, and Lasix 20 mg PO Daily. She was also instructed to follow up with cardiology as well as her primary care physician within one week. Minutes to complete discharge: 38 Discharge Summary Reason For Visit: NON-ST ELEVATION MYOCARDIAL INFARCTION Current Active Problems Acute combined systolic and diastolic ACC/AHA stage C congestive heart failure ( Chronic) GERD (gastroesophageal reflux disease) (Chronic) Hyperlipidemia associated with type 2 diabetes mellitus (Chronic) Hypocholesterolemia (Chronic) Insulin dependent diabetes mellitus (Chronic) Condition: Improved - Instructions Diet, Activity, Other Instructions: You were admitted to the hospital with chest pain and shortness of breath. You were also found to have increased fluid retention secondary to decreased function of your heart. You were seen by cardiology who recommended Lasix ( diuretic), Coreg (beta brittny), losartan (bree inhibitor). Your symptoms improved with the lasix. You were deemed medically safe for discharge with close follow up as an outpatient by a applications sales representative. You should continue improving your diet as discussed in order to lower your blood glucose levels and better manage your diabetes. Follow Ups: You should follow up with your primary care physician within one week of discharge from the hospital. You should follow up with a applications sales representative within one week of discharge from the hospital. You will need to have a cardiac catheterization of your heart. Medications: You should begin taking Lasix 40 mg by mouth once daily. You should begin taking Coreg (Carvedilol) 6.25 mg by mouth twice daily, one pill in the morning and one at night You should begin taking Losartan 25 mg by mouth once daily You should stop taking your Toprol (Metoprolol Tartrate) If you have severe worsening of your breathing or build up of fluid in your legs , chest pain or pressure, lightheadedness, dizziness, loss of consciousness or any other concerning symptoms, you should call your doctor or return to the emergency department immediately. Referrals: Saud Spencer MD [Staff Physician] - 1 Week Kerri Franco [Primary Care Provider] - Disposition: HOME - Home Medications Comprehensive Discharge Medication List: Ambulatory Orders Gabapentin 800 mg PO TID 05/28/18 Glipizide 5 mg PO BID 05/28/18 Insulin Lispro [Humalog] 100 unit SQ [facility] PRN 05/28/18 Ropinirole HCl [Requip] 1 mg PO BID 05/28/18 Rosuvastatin Calcium [Crestor] 20 mg PO DAILY 05/28/18 Saxagliptin HCl/Metformin HCl [Kombiglyze Xr 2.5-1,000 mg Tab] 1 tab PO BID Carvedilol [Coreg -] 6.25 mg PO BID #60 tablet 05/31/18 Furosemide [Lasix -] 20 mg PO DAILY #30 tablet 05/31/18 Losartan Potassium [Cozaar -] 25 mg PO DAILY #30 tablet 05/31/18 This patient is new to me today: No Emergency Visit: Yes ED Registration Date: 05/29/18 Care time: The patient presented to the Emergency Department on the above date and was hospitalized for further evaluation of their emergent condition. Critical Care patient: No - Discharge Referral Referred to [facility] No
[2018-06-01] MEDS ORDERED: FUROSEMIDE 20 MG TABLET (FP) PO SCH (10:00)
== END 2018-05-31 14:57 | disposition home or self-care (01) | DRG 280 ==
LOC: JER 19:34 → JERBED 23:14 → OBSVTOIN 05-29 08:49 → J4W 05-29 09:45
PROVIDERS: ADMIT Internal Medicine; ATTEND Internal Medicine
DX: I21.A1 Myocardial infarction type 2 (principal); I50.43 Acute on chronic combined systolic (congestive) and diastolic (congestive) heart failure; E11.9 Type 2 diabetes mellitus without complications; K21.9 Gastro-esophageal reflux disease without esophagitis; E78.5 Hyperlipidemia, unspecified; Z79.4 Long term (current) use of insulin; E66.9 Obesity, unspecified; Z68.33 Body mass index [BMI] 33.0-33.9, adult; G25.81 Restless legs syndrome; I11.0 Hypertensive heart disease with heart failure; N63.0 Unspecified lump in unspecified breast
CPT/HCPCS: 36415; 71045-TC-FY; 71260-TC; 80048; 80053; 80061; 82009; 82550; 82553; 82962; 83036; 83721; 83735; 83880; 84100; 84443; 84484; 85025; 85379; 85610; 85730; 87899; 90688; 90732; 93005; 93010; 93306-TC; 93970-TC; 94640; 99285-25; G0008; G0009; G0378; J1644